=== PATIENT | male | born 1975 | race African-American/Black ===

== ENCOUNTER 2023-02-21 10:23 | Outpatient (CLI) | payer OTHER | END 2023-02-21 20:35 | disposition home or self-care (01) | LOC: MRD 10:23 | PROVIDERS: ATTEND Family Medicine | DX: M47.816 Spondylosis without myelopathy or radiculopathy, lumbar region (principal) | CPT/HCPCS: 72110 ==

== ENCOUNTER 2023-03-08 08:05 | Day surgery (SDC) | payer OTHER ==
[~2023-03-08] VITALS: Ht 193 cm; Wt 90.7 kg
[2023-03-08] MEDS ORDERED: diphenhydrAMINE 50 MG/ML VIAL ONE (10:39)
[2023-03-08] MEDS ORDERED: MIDAZOLAM 2 MG/2 ML VIAL ONE (10:39)
[2023-03-08] MEDS ORDERED: LIDOCAINE 2% 100 MG/5 ML UJET TP ONE ×2 (10:40→16:05)
[2023-03-08] MEDS ORDERED: fentaNYL citrate 0.05 MG/ML VIAL ONE (10:40)
[2023-03-08] MEDS ORDERED: MIDAZOLAM 2 MG/2 ML VIAL IVP ONE (16:05)
[2023-03-08] MEDS ORDERED: diphenhydrAMINE 50 MG/ML VIAL IVP ONE (16:05)
[2023-03-08] MEDS ORDERED: fentaNYL citrate 0.05 MG/ML VIAL IVP ONE (16:05)
== END 2023-03-08 11:58 | disposition home or self-care (01) ==
LOC: MDS 08:05 → MMU 08:06 → MDS 11:58
PROVIDERS: ATTEND Internal Medicine Gastroenterology
DX: K62.5 Hemorrhage of anus and rectum (principal); K64.8 Other hemorrhoids; Z86.010 Personal history of colon polyps; I10 Essential (primary) hypertension; E78.5 Hyperlipidemia, unspecified; J45.909 Unspecified asthma, uncomplicated; Z98.890 Other specified postprocedural states
CPT/HCPCS: 45378; J1200; J2250; J3010